=== PATIENT | male | born 1970 | race Asian ===

== ENCOUNTER 2024-08-05 00:07 | Emergency (ER) | payer OTHER ==
[~2024-08-05] VITALS: Ht 175.3 cm; Wt 79.4 kg
[2024-08-05] MEDS ORDERED: IBUP-1490 PO (01:15)
[2024-08-05] MEDS ORDERED: CYCL10TA9 PO (01:15)
[2024-08-05] MEDS ORDERED: CYCLOBENZAPRINE 10 MG TABLET ONE (01:18)
[2024-08-05] MEDS: CYCLOBENZAPRINE 10 MG TABLET PO ONE (01:19)
[2024-08-05] MEDS: IBUPROFEN 600 MG TABLET PO ONE (01:19)
[2024-08-05] MEDS ORDERED: IBUPROFEN 600 MG TABLET ONE (01:19)
[2024-08-05 01:35] VITALS: BP 130/82; TEMP 98.5; O2SAT 99
== END 2024-08-05 01:35 | disposition home or self-care (01) ==
LOC: ER 00:12
DX: R07.81 Pleurodynia (principal); M54.2 Cervicalgia; M79.602 Pain in left arm; Z79.899 Other long term (current) drug therapy; Y04.8XXA Assault by other bodily force, initial encounter; Y93.89 Activity, other specified; Y92.89 Other specified places as the place of occurrence of the external cause; Y99.8 Other external cause status